=== PATIENT | female | born 1975 | race Caucasian/White ===

== ENCOUNTER 2017-03-25 11:57 | Emergency (ER) | payer MEDICAID, OTHER ==
[~2017-03-25] VITALS: Ht 160 cm; Wt 61.0 kg
[~2017-03-25 11:57] MED LIST: BUTA1CAP39 PO
[2017-03-25 11:59] VITALS: Ht 160 cm; Wt 61.0 kg
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
[2017-03-25] MEDS ORDERED: ACETAMINOPHEN 500 MG TAB PO STA (13:11)
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
[2017-03-25] MEDS ORDERED: NAPR-260 PO (14:37)
[2017-03-25] MEDS ORDERED: TRAM50TA2 PO (14:37)
[2017-03-25] MEDS ORDERED: NEOM1PAC TP (14:38)
[2017-03-25 15:08] VITALS: BP 136/98; PULSE 100; RESP 16; TEMP 100
== END 2017-03-25 15:12 | disposition home or self-care (01) ==
LOC: FTE 11:57
DX: R51 Headache (principal); R07.81 Pleurodynia; S00.83XA Contusion of other part of head, initial encounter; Y08.89XA Assault by other specified means, initial encounter
CPT/HCPCS: 70450; 71010; 71100; 73110; 73550; 73610; Z7502; Z7610

== ENCOUNTER 2017-07-30 22:57 | Emergency (ER) | payer OTHER ==
[~2017-07-30] VITALS: Ht 157.5 cm; Wt 59.2 kg
[~2017-07-30 22:57] MED LIST changes: +NAPR-260 PO; +NEOM1PAC TP; +TRAM50TA2 PO
[2017-07-30 23:02] VITALS: Ht 157.5 cm; Wt 59.2 kg
[2017-07-31] MEDS ORDERED: morphine 4 MG/ML VIAL IV STA (02:02)
[2017-07-31] MEDS ORDERED: SOD CHLORIDE 0.9% 1,000 ML IV STA (02:02)
[2017-07-31] MEDS ORDERED: ONDANSETRON 4 MG INJ IV STA (02:02)
--- NOTE | 2017-07-31 02:22 | ERD ---
ER Documentation Chief Complaint Date/Time DATE: 07/31/17 TIME: 02:20 Chief Complaint L low back pain today HPI 42-year-old female presents here in emergency department for complaints of left lower back/flank pain that started today. Patient described the pain as sharp pain, 6/10 scale, not better or worse with anything. Patient was seen at another emergency department 2 days ago, was diagnosed of anxiety, is currently taking Ativan, has not taken it yet, patient has on and off palpitations, feels stressed at times. Patient has not taken her Ativan tonight.she denies any hematuria or dysuria.She denies any trauma on the back. ROS All systems reviewed and are negative except as per history of present illness. Medications Home Meds Active Scripts Ondansetron (Ondansetron Odt) 4 Mg Tab.rapdis, 4 MG PO Q8 Y for NAUSEA AND/OR VOMITING, #30 TAB Prov:JUMA MCKEON NP 07/31/17 Levofloxacin* (Levaquin*) 750 Mg Tablet, 750 MG PO DAILY for 5 Days, TAB Prov:JUAM MCKEON NP 07/31/17 Hydrocodone/Acetaminophen (Fenton 5-325 Tablet) 1 Each Tablet, 1 TAB PO Q6H Y for SEVERE PAIN LEVEL 7-10, #10 TAB Prov:JUMA MCKEON NP 07/31/17 Ibuprofen* (Motrin*) 600 Mg Tab, 600 MG PO Q6H Y for PAIN AND OR ELEVATED TEMP, #30 TAB Prov:JUMA MCKEON NP 07/31/17 Neomycin Morton/Bacitrac Zn/Poly (Triple Antibiotic Ointment) 1 Each Oint.pack, 1 EACH TP BID, #30 Prov:CHRISTINE CALABRESE PA-C 03/25/17 Naproxen* (Naprosyn*) 500 Mg Tablet, 500 MG PO BID Y for PAIN AND/OR INFLAMMATION, #30 TAB Prov:CHRISTINE CALABRESE PA-C 03/25/17 Tramadol HCl (Tramadol HCl) 50 Mg Tablet, 50 MG PO Q4 Y for PAIN, #20 TAB Prov:CHRISTINE CALABRESE PA-C 03/25/17 Nswealpzpptpq-Jqxadvsdmr-Ntequpei-Codeine* (Fioricet w/ Codeine*) [id number] 30MG Capsule, 1 CAP PO Q6H Y for PAIN LEVEL 1-5, #30 CAP Prov:JUMA MCKEON CASTRO TBoris PURVIS 11/04/15 Reported Medications [None] No Conflict Check 10/01/12 Allergies Allergies: Coded Allergies: No Known Drug Allergies (Verified Allergy, Mild, 11/03/15) PMhx/Soc History of Surgery: Yes () Anesthesia Reaction: No Hx Neurological Disorder: No Hx Respiratory Disorders: No Hx Cardiac Disorders: Yes (HEART MURMUR) Hx Psychiatric Problems: No Hx Miscellaneous Medical Probl: Yes (kidney stones, gallstones) Hx Alcohol Use: Yes Hx Substance Use: No Hx Tobacco Use: No Smoking Status: Never smoker FmHx Family History: No coronary disease, No diabetes, No other Physical Exam Vitals Vital Signs Date Time Temp Pulse Resp B/P Pulse Ox O2 Delivery O2 Flow Rate FiO2 07/31/17 04:48 98.4 98 14 145/93 98 07/31/17 04:35 102 07/30/17 23:02 99.2 117 20 143/89 98 Physical Exam GENERAL: The patient is well developed and appropriate for usual state of health, in no apparent distress. CHEST: Clear to auscultation bilaterally. There are no rales, wheezes or rhonchi. HEART: tachycardicr rate and w/ regular rhythm. No murmurs, clicks, rubs or gallops. No S3 or S4. ABDOMEN: Soft, nontender and nondistended. Good bowel sounds. No rebound or guarding. No gross peritonitis. No gross organomegaly or masses. No Becerril sign or McBurney point tenderness. BACK: No midline or flank tenderness. EXTREMITIES: Equal pulses bilaterally. There is no peripheral clubbing, cyanosis or edema. No focal swelling or erythema. Full range of motion. Grossly neurovascularly intact. NEURO: Alert and oriented. Cranial nerves 2-12 intact. Motor strength in all 4 extremities with 5/5 strength. Sensation grossly intact. Normal speech and gait. SKIN: There is no apparent rash or petechia. The skin is warm and dry. HEMATOLOGIC AND LYMPHATIC: There is no evidence of excessive bruising or lymphedema. No gross cervical, axillary, or inguinal lymphadenopathy. Result Diagram: 07/31/17 0240 07/31/17 0240 Results 24 hrs Laboratory Tests Test 07/31/17 02:10 07/31/17 02:40 Urine Color YELLOW Urine Clarity SLIGHTLY CLOUDY Urine pH 6.0 Urine Specific [place] 1.008 Urine Ketones NEGATIVEmg/dL Urine Nitrite NEGATIVEmg/dL Urine Bilirubin NEGATIVEmg/dL Urine Urobilinogen NEGATIVEmg/dL Urine Leukocyte Esterase NEGATIVELeu/ul Urine Microscopic RBC 2/HPF Urine Microscopic WBC 3/HPF Urine Squamous Epithelial Cells FEW/HPF Urine Amorphous Crystals MODERATE/HPF Urine Hemoglobin 1+mg/dL Urine Glucose NEGATIVEmg/dL Urine Total Protein 2+mg/dl White Blood Count 5.110^3/ul Red Blood Count 4.2910^6/ul Hemoglobin 14.0g/dl Hematocrit 41.2% Mean Corpuscular Volume 96.0fl Mean Corpuscular Hemoglobin 32.6pg Mean Corpuscular Hemoglobin Concent 34.0g/dl Red Cell Distribution Width 13.4% Platelet Count 49983^3/UL Mean Platelet Volume 11.5fl Neutrophils % 50.5% Lymphocytes % 30.5% Monocytes % 16.2% Eosinophils % 1.4% Basophils % 1.2% Nucleated Red Blood Cells % 0.0/100WBC Neutrophils # 2.610^3/ul Lymphocytes # 1.510^3/ul Monocytes # 0.810^3/ul Eosinophils # 0.110^3/ul Basophils # 0.110^3/ul Nucleated Red Blood Cells # 0.010^3/ul Sodium Level 136mmol/L Potassium Level 3.8mmol/L Chloride Level 96mmol/L Carbon Dioxide Level 24mmol/L Anion Gap 20 Blood Urea Nitrogen 14mg/dl Creatinine 0.53mg/dl Glucose Level 90mg/dl Calcium Level 9.7mg/dl Total Bilirubin 0.7mg/dl Direct Bilirubin 0.00mg/dl Indirect Bilirubin 0.7mg/dl Aspartate Amino Transf (AST/SGOT) 111IU/L Alanine Aminotransferase (ALT/SGPT) 116IU/L Alkaline Phosphatase 112IU/L Total Protein 8.6g/dl Albumin 4.7g/dl Globulin 3.90g/dl Albumin/Globulin Ratio 1.20 Lipase 217U/L Current Medications Medications (Trade) Dose Ordered Sig/Jael Route PRN Reason Start Time Stop Time Status Last Admin Dose Admin Sodium Chloride (NS) 1,000 ml @ 1,000 mls/hr Q1H STAT IV 07/31/17 02:02 07/31/17 03:01 DC 07/31/17 02:54 Morphine Sulfate (morphine) 4 mg ONCE STAT IV 07/31/17 02:02 07/31/17 02:04 DC 07/31/17 02:54 Ondansetron HCl (Zofran Inj) 4 mg ONCE STAT IV 07/31/17 02:02 07/31/17 02:04 DC 07/31/17 02:55 Lorazepam (Ativan) 1 mg ONCE ONCE IV 07/31/17 02:30 07/31/17 02:31 DC 07/31/17 02:55 Patient was given medication for pain here in emergency department, after treatment, patient verbalized feeling much better. Patient's pain is improved.Patient was given Zofran here in the emergency department. After treatment, patient was able to tolerate po fluids here in the emergency department without any vomiting. There is no signs and symptoms of dehydration. Normal saline IV bolus was given here in emergency department for rehydration, patient tolerated IV fluids.Ativan was given here in emergency dept to help with her anxiety. EKG was done, read by me and is sinus tachycardic rhythm at a rate of 102, normal axis, there is no ST changes or changes in the EKG that indicates any cardiac emergencies at this time. Patient's EKG was also reviewed by . Impression: no acute findings on EKG PROCEDURE: CT of the abdomen and pelvis without contrast CLINICAL INDICATION: Abdominal pain TECHNIQUE: Spiral CT images through the abdomen and pelvis without the use of contrast. The administered radiation dose is CTDI 6.68 mGy and DLP 387.69 mGy* cm. Coronal and sagittal reformatted images were submitted. One or more of the following dose reduction techniques were used: automated exposure control, adjustment of the mA and/or kV according to patient size, or use of iterative reconstruction technique. COMPARISON: 07/23/2012 FINDINGS: Lack of oral and intravenous contrast somewhat limits evaluation. There are scattered reticular nodular densities in the lungs.. No pleural or pericardial effusion is seen. The liver is diffusely decreased in attenuation. The spleen, adrenal glands and pancreas are normal in appearance. Cholelithiasis or biliary ductal dilatation. The kidneys are normal in size and contour. There is no evidence of hydronephrosis or nephrolithiasis. The aorta is normal in caliber.. Small fat containing umbilical hernia is seen. There is no evidence for bowel obstruction , free air, or abscess. The appendix is normal in appearance. . No adenopathy or ascites is seen. The sigmoid colon and rectum are unremarkable. The uterus is retroverted. The bladder wall is thickened, partially due to underdistension. Transitional vertebral body is noted. Old or healing fractures of the posterior lateral right seventh rib, left L4, and L5 transverse processes and left pubic rami are seen. Bilateral sacroiliac joints are narrowed and sclerotic. L5-S1 central disc protrusion. IMPRESSION: Patchy reticular nodular infiltrates in the lungs. Clinical correlation recommended. Fatty infiltration of the liver. Thickened bladder wall. Old or healing fractures of the posterior lateral right seventh rib, left L4 L5 transverse processes and left pubic rami.. RPTAT: HCNS Physician Shirlene Date Time Electronically viewed and signed by Physician Shirlene on 07/31/2017 04: 13 CS/ CC: JUMA MCKEON SHIFT COORDINATOR Procedures/MDM Medical Decision Making:Patient's left flank pain and specific at this time, may have passed a kidney stone, there is hemoglobin in the urine with RBC, may have caused the left lung pain. Patient has an incidental finding of infiltrates in the lungs, which at the patient. There is low suspicion for abdominal emergencies at this time. Patients abdominal exam is normal at this time. Patients radiology exam does not show any abdominal emergencies at this time. There is low suspicion for appendicitis, cholecystitis, abdominal aortic aneurysms or peritonitis at this time. There is low suspicion for sepsis. Patient appears well and is hemodynamically stable.she has elevated heart rate most likely is from anxiety. Patient is currently already on medications. Disposition: Home. Condition: Stable Prescription Fenton, ibuprofen, Levaquin Instructions: Patient is advised to take medications as prescribed. Patient is advised to rest, increase fluid intake and do brat diet for next 1-2 days and progress as tolerated. Patient is advised that if symptoms are worse, severe abdominal pain, uncontrolled vomiting, high fever, severe flank pain, worst signs and symptoms, to return to the emergency department immediately. Otherwise, patient can follow up with primary care doctor in 5-7 days. Disclaimer: Inadvertent spelling and grammatical errors are likely due to EHR/ dictation software use and do not reflect on the overall quality of patient care. Also, please note that the electronic time recorded on this note does not necessarily reflect the actual time of the patient encounter. Departure Diagnosis: Primary Impression: Back pain Back pain location: low back pain Chronicity: acute Back pain laterality: left Sciatica presence: without sciatica Qualified Code: M54.5 - Acute left- sided low back pain without sciatica Additional Impression: Pneumonia Pneumonia type: due to unspecified organism Laterality: left Lung location : unspecified part of lung Qualified Code: J18.9 - Pneumonia of left lung due to infectious organism, unspecified part of lung Condition: Stable Patient Instructions: Back Pain (Acute Or Chronic), Pneumonia (Adult) Additional Instructions: Patient is advised to take medications as prescribed. Patient is advised to rest , increase fluid intake and do brat diet for next 1-2 days and progress as tolerated. Patient is advised that if symptoms are worse, severe abdominal pain , uncontrolled vomiting, high fever, severe flank pain, worst signs and symptoms , to return to the emergency department immediately. Otherwise, patient can follow up with primary care doctor in 5-7 days. JUMA MCKEON NP Jul 31, 2017 02:22
[2017-07-31] MEDS ORDERED: LORAZEPAM 2 MG INJ IV ONE (02:30)
[2017-07-31 02:57] LABS: BASOPHIL # 0.1 10^3/ul (0.0-0.1); BASOPHILS % 1.2 % (0.0-2.0); EOSINOPHILS # 0.1 10^3/ul (0.0-0.5); EOSINOPHILS % 1.4 % (0.0-7.0); HEMATOCRIT 41.2 % (37.0-47.0); LYMPHOCYTES # 1.5 10^3/ul (0.8-2.9); LYMPHOCYTES % 30.5 % (15.0-51.0); MEAN CORPUSCULAR HEMOGLOBIN 32.6 pg (29.0-33.0); MONOCYTE # 0.8 10^3/ul (0.3-0.9); MONOCYTES % 16.2 % (0.0-11.0); NEUTROPHIL # 2.6 10^3/ul (1.6-7.5); NEUTROPHILS % 50.5 % (39.0-77.0); PLATELET COUNT 134 10^3/UL (140-415); RED BLOOD COUNT 4.29 10^6/ul (4.20-5.40); RED CELL DISTRIBUTION WIDTH 13.4 % (11.5-14.5); WHITE BLOOD COUNT 5.1 10^3/ul (4.8-10.8)
[2017-07-31 03:05] LABS: MEAN PLATELET VOLUME 11.5 fl (7.4-10.4); POSITIVE DIFF @See below
[2017-07-31 03:07] LABS: ADD UMIC YES; UR AMORPHOUS CRYSTAL MODERATE /HPF (NONE SEEN); UR ASCORBIC ACID NEGATIVE (NEGATIVE); UR BILIRUBIN (Dip) NEGATIVE (NEGATIVE); UR BLOOD (Dip) 1+ mg/dL (NEGATIVE); UR CLARITY SLIGHTLY CLOUDY (CLEAR); UR COLOR YELLOW (YELLOW); UR GLUCOSE (Dip) NEGATIVE (NEGATIVE); UR KETONES (Dip) NEGATIVE (NEGATIVE); UR LEUKOCYTE ESTERASE (Dip) NEGATIVE Leu/ul (NEGATIVE); UR NITRITE (Dip) NEGATIVE (NEGATIVE); UR RBC 2 /HPF (0-5); UR SPECIFIC GRAVITY (Dip) 1.008 (1.003-1.030); UR SQUAMOUS EPITHELIAL CELL FEW /HPF (FEW); UR TOTAL PROTEIN (Dip) 2+ mg/dl (NEGATIVE); UR UROBILINOGEN (Dip) NEGATIVE (NEGATIVE)
[2017-07-31 03:29] LABS: ALBUMIN 4.7 g/dl (3.3-4.9); ALBUMIN/GLOBULIN RATIO 1.2; BILIRUBIN,INDIRECT 0.7 mg/dl (0-1.1); BILIRUBIN,TOTAL 0.7 mg/dl (0.2-1.3); CALCIUM 9.7 mg/dl (8.4-10.2); CREATININE 0.53 mg/dl (0.44-1.00); POTASSIUM 3.8 mmol/L (3.5-5.1); TOTAL PROTEIN 8.6 g/dl (6.1-8.1)
--- NOTE | 2017-07-31 04:13 | RADRPT ---
PROCEDURE: CT of the abdomen and pelvis without contrast CLINICAL INDICATION: Abdominal pain TECHNIQUE: Spiral CT images through the abdomen and pelvis without the use of contrast. The admin istered radiation dose is CTDI 6.68 mGy and DLP 387.69 mGy*cm. Coronal and sagittal reformatted yesenia ges were submitted. One or more of the following dose reduction techniques were used: automated exp osure control, adjustment of the mA and/or kV according to patient size, or use of iterative reconst ruction technique. COMPARISON: 07/23/2012 FINDINGS: Lack of oral and intravenous contrast somewhat limits evaluation. There are scattered reticular n odular densities in the lungs.. No pleural or pericardial effusion is seen. The liver is diffusely decreased in attenuation. The spleen, adrenal glands and pancreas are normal in appearance. Cholelithiasis or biliary ductal dilatation. The kidneys are normal in size and conto ur. There is no evidence of hydronephrosis or nephrolithiasis. The aorta is normal in caliber.. Sma ll fat containing umbilical hernia is seen. There is no evidence for bowel obstruction, free air, o r abscess. The appendix is normal in appearance. . No adenopathy or ascites is seen. The sigmoid c olon and rectum are unremarkable. The uterus is retroverted. The bladder wall is thickened, partiall y due to underdistension. Transitional vertebral body is noted. Old or healing fractures of the post erior lateral right seventh rib, left L4, and L5 transverse processes and left pubic rami are seen. Bilateral sacroiliac joints are narrowed and sclerotic. L5-S1 central disc protrusion. IMPRESSION: Patchy reticular nodular infiltrates in the lungs. Clinical correlation recommended. Fatty infiltration of the liver. Thickened bladder wall. Old or healing fractures of the posterior lateral right seventh rib, left L4 L5 transverse processes and left pubic rami.. RPTAT: HCNS Physician Shirlene Date Time Electronically viewed and signed by Physician Shirlene on 07/31/2017 04:13 /
[2017-07-31] MEDS ORDERED: HYDR-906 PO (04:24)
[2017-07-31] MEDS ORDERED: IBUP-1542 PO (04:24)
[2017-07-31] MEDS ORDERED: LEVO750T25 PO (04:24)
[2017-07-31 04:48] VITALS: BP 145/93; PULSE 98; RESP 14; TEMP 98.4
[2017-07-31] MEDS ORDERED: ONDA4TAB14 PO (04:51)
== END 2017-07-31 04:52 | disposition home or self-care (01) ==
LOC: FTE 22:57
DX: M54.5 Low back pain (principal); J18.9 Pneumonia, unspecified organism; R00.2 Palpitations
CPT/HCPCS: 36415; 74176; 80053; 81001; 83690; 85025; 93005; 96374; 96375; J2060; J2270; J2405; J7030; Z7502